=== PATIENT | female | born 1955 | race Caucasian/White ===

== ENCOUNTER 2018-12-12 05:47 | Inpatient (IN) | payer BC, MEDICARE ==
[2018-12-12] MEDS ORDERED: Lactated Ringer's 1,000 ML IV ONE ×2 (06:45→09:17)
[2018-12-12 06:50] VITALS: BMI 34.7
[2018-12-12] MEDS ORDERED: Bacitracin Ointment 30 GM TUBE ONE (07:16)
[2018-12-12] MEDS ORDERED: Absorbable Gelatin Sponge Size 12-7 ONE (07:16)
[2018-12-12] MEDS ORDERED: Thrombin Topical 5,000 Int Units Spray Kit ONE (07:16)
[2018-12-12] MEDS ORDERED: Propofol 10 mg/ml Inj (20 ML) ONE (07:24)
[2018-12-12] MEDS ORDERED: Etomidate 20 mg/10ml Inj IV ONE (07:24)
[2018-12-12] MEDS ORDERED: Succinylcholine Chloride 20 mg/ml Syr (5 ml) IV ONE (07:24)
[2018-12-12] MEDS ORDERED: Rocuronium 10 mg/ml (5 ml) ONE (07:24)
[2018-12-12] MEDS ORDERED: Lidocaine 2% MPF (5 ml) Inj ONE (07:24)
[2018-12-12] MEDS ORDERED: Tranexamic Acid 1,000 MG in Sodium Chloride 0.9% 100 ML IVPB ONE (07:26)
--- NOTE | 2018-12-12 07:26 | CP.PCM.CON ---
History of Present Illness - History of Present Illness History of Present Illness: Orthopedic consult: Dr. Zheng Patient is a 63 y/o female who presents for elective R TKA. The patient has had non-traumatic chronic knee pain for many years which has worsened over the past few months hindering her daily activities, such as walking and stair climbing. The pain has been resistant to conservative means with PT, oral meds and intra- articular injections. She had R knee arthroscopy in August 2018 with temporary pain relief and opted for joint replacement. She denies radiation of pain/numbness/tingling. She denies CP/SOB/N/V/D/fever/melena/dysuria. She denies any cardiac/thromboembolic events in the past. PMH: HTN, HLD PSH: R knee arthroscopy Aug 2018, L3-4 lumbar fusion, cholecystectomy, breast lumpectomy meds: as per med rec allergy: tramadol (hallucinations: side effect) SH: occasional ETOH, denies tobacco/drug use Review of Systems - Review of Systems All systems: reviewed and no additional remarkable complaints except Review of Systems: as per HPI Past Patient History - Past Medical History & Family History Past Medical History?: Yes Past Family History: Reviewed and not pertinent - Past Social History Smoking Status: Never Smoked - CARDIAC Hx Hypertension: Yes - MUSCULOSKELETAL/RHEUMATOLOGICAL Hx Musculoskeletal Disorders: Yes Hx Back Pain: Yes Hx Osteoarthritis: Yes Hx Unsteady Gait: No - SURGICAL HISTORY Hx Surgeries: Yes Hx Arthroscopy: Yes (R knee 2018) Hx Musculoskeletal Surgery: Yes (lumbar fusion 2016) Other/Comment: epidural inj x 2 10/2018 - ANESTHESIA Hx Anesthesia: Yes Hx Anesthesia Reactions: No Hx Malignant Hyperthermia: No Has any member of the family had a problem w/ anesthesia?: No Meds Allergies/Adverse Reactions: Allergies Allergy/AdvReac Type Severity Reaction Status Date / Time tramadol AdvReac DIZZINESS Uncoded 12/12/18 07:31 Physical Exam - Constitutional Appears: Well, No Acute Distress - Head Exam Head Exam: ATRAUMATIC, NORMOCEPHALIC - Eye Exam Eye Exam: EOMI, Normal appearance - ENT Exam ENT Exam: Mucous Membranes Moist - Respiratory Exam Respiratory Exam: NORMAL BREATHING PATTERN - Extremities Exam Additional comments: R knee: mod swelling, effusion limited ROM secondary to pain (0-90deg) sensation intact SP/DP/TN motor intact EHL/FHL/TA/G pedal pulse intact calves soft NT b/l - Neurological Exam Neurological exam: Alert, Oriented x3 - Psychiatric Exam Psychiatric exam: Normal Affect, Normal Mood - Skin Skin Exam: Normal Color, Warm Results - Vital Signs Recent Vital Signs: Last Vital Signs Temp 98 F 12/12/18 07:03 Pulse 61 12/12/18 07:03 Resp 18 12/12/18 07:03 BP 112/67 12/12/18 07:03 Pulse Ox 96 12/12/18 07:03 - Impressions Impression: R knee films reveal degenerative joint disease Assessment & Plan (1) Osteoarthritis of right knee Assessment and Plan: Dr. Zheng has planned for R TKA Risks/benefits/alternatives were explained to patient who understands and agrees to proceed with procedure NPO admit to Hospitalist D/w Dr. Zheng who agrees with above Status: Acute - Date & Time Date: 12/12/18 Time: 07:00
[2018-12-12] MEDS ORDERED: Bupivacaine HCl 0.5% PF (30 ml) Inj ONE (07:27)
--- NOTE | 2018-12-12 07:27 | CP.PCM.HP ---
<AlejandroLissette - Last Filed: 12/12/18 08:07> History of Present Illness - History of Present Illness History of Present Illness: 63 yo female with history of HTN, HLD and right knee osteoarthritis presents for elective R TKA. Patient reports chronic right knee pain of which she ambulates with a cane for stability at home. Denies chest pain, dypsnea, nausea, vomiting, fevers, chills, abdominal pain, dizziness, cough. ROS negative except for stated above in HPI. PMH: HTN, HLD, right knee osteoarthritis PSH: R knee arthroscopy Aug 2018, L3-4 lumbar fusion, cholecystectomy, breast lumpectomy Meds: as per med rec Allergy: tramadol (hallucinations: side effect) SH: social ETOH, denies tobacco/drug use. Patient cleared by her primary physician- Dr. Garces. - Lab work 12/05/18 - Chest Xray 12/05/18: No acute disease; - EK12/05/18: NSR Present on Admission - Present on Admission Any Indicators Present on Admission: No Past Patient History - Past Medical History & Family History Past Medical History?: Yes - Past Social History Smoking Status: Never Smoked - CARDIAC Hx Hypertension: Yes - MUSCULOSKELETAL/RHEUMATOLOGICAL Hx Musculoskeletal Disorders: Yes Hx Back Pain: Yes Hx Osteoarthritis: Yes Hx Unsteady Gait: No - SURGICAL HISTORY Hx Surgeries: Yes Hx Arthroscopy: Yes (R knee 2018) Hx Musculoskeletal Surgery: Yes (lumbar fusion 2016) Other/Comment: epidural inj x 2 10/2018 - ANESTHESIA Hx Anesthesia: Yes Hx Anesthesia Reactions: No Hx Malignant Hyperthermia: No Has any member of the family had a problem w/ anesthesia?: No Meds Allergies/Adverse Reactions: Allergies Allergy/AdvReac Type Severity Reaction Status Date / Time tramadol AdvReac DIZZINESS Uncoded 12/12/18 07:31 Physical Exam - Constitutional Appears: Well, Non-toxic, No Acute Distress - Eye Exam Eye Exam: Normal appearance - ENT Exam ENT Exam: Mucous Membranes Moist - Respiratory Exam Respiratory Exam: Clear to Auscultation Bilateral, NORMAL BREATHING PATTERN. absent: Accessory Muscle Use, Chest Wall Tenderness, Decreased Breath Sounds, Prolonged Expiratory Phase, Rales, Rhonchi, Wheezes, Respiratory Distress, Stridor - Cardiovascular Exam Cardiovascular Exam: REGULAR RHYTHM, +S1, +S2 - GI/Abdominal Exam GI & Abdominal Exam: Normal Bowel Sounds, Soft. absent: Distended, Firm, Rebound, Tenderness - Extremities Exam Extremities exam: Positive for: normal inspection, pedal pulses present (+2 dorsalis pedis and tibilias pulses present bilaterally. ). Negative for: calf tenderness, joint swelling, pedal edema, tenderness Additional comments: Right knee mildly larger than the left knee. Non-tender to touch, non- erythematous, no warmth. - Neurological Exam Neurological exam: Alert, Oriented x3 - Psychiatric Exam Psychiatric exam: Normal Affect, Normal Mood - Skin Skin Exam: Dry, Intact, Normal Color, Warm Results - Vital Signs Recent Vital Signs: Last Vital Signs Temp 98 F 12/12/18 07:03 Pulse 61 12/12/18 07:03 Resp 18 12/12/18 07:03 BP 112/67 12/12/18 07:03 Pulse Ox 96 12/12/18 07:03 Assessment & Plan (1) Osteoarthritis of right knee Status: Acute (2) Hypertension Status: Acute (3) Hyperlipidemia Status: Acute (4) Full code status Status: Acute (5) DVT prophylaxis Status: Acute - Assessment and Plan (Free Text) Assessment: 63 yo female with history of HTN, HLD and right knee osteoarthritis presents for elective R TKA- to be performed today. Plan: 1. Right Knee Osteoarthritis - consult Dr. Zheng - Orthopedic surgeon- recs appreciated - OT/PT - Pain management as per Ortho - NPO at this time - f/u knee xray 2. Hypertension - controlled - C/W home meds tomorrow- Losartan and Lasix 3. Hyperlipidemia - c/w home medication- Zetia 3. DVT prophylaxis - Lovenox 40 mg daily <Johnie Matamoros - Last Filed: 12/12/18 11:05> Results - Vital Signs Recent Vital Signs: Last Vital Signs Temp 98 F 12/12/18 07:03 Pulse 61 12/12/18 07:03 Resp 18 12/12/18 07:03 BP 112/67 12/12/18 07:03 Pulse Ox 96 12/12/18 07:03 - Labs Result Diagrams: 12/12/18 07:00 Labs: Laboratory Results - last 24 hr 12/12/18 12/12/18 07:00 08:30 WBC 4.3 L RBC 4.08 Hgb 12.7 Hct 38.4 MCV 94.0 MCH 31.1 H MCHC 33.1 RDW 13.7 Plt Count 188 MPV 12.2 H Neut % (Auto) 60.4 Lymph % (Auto) 26.4 [place] % (Auto) 6.7 Eos % (Auto) 5.9 H Baso % (Auto) 0.6 Neut # (Auto) 2.6 Lymph # (Auto) 1.1 [place] # (Auto) 0.3 Eos # (Auto) 0.3 Baso # (Auto) 0.0 Fluid Type Synovial fluid Attending/Attestation - Attestation I have personally seen and examined this patient.: Yes I have fully participated in the care of the patient.: Yes I have reviewed all pertinent clinical information: Yes Notes (Text): 12/12/18 10:52 I saw, examined and discussed this patient with Dr Wick. I agree with the assessment and plan outlined above. This is a 63 years old female with a Chronic non traumatic pain to the right knee becoming, worse to where she has to use a walker to ambulate. She is admitted for an elective total right knee replacement with orthopedic management. The patient was cleared by Dr Garces. Continue Home medication post surgery. DVT Prophylaxis to start on Post operation day #1. Johnie Matamoros MD
[2018-12-12 08:39] LABS: BASO % 0.6 % (0.0-2.0); EOS # 0.3 K/uL (0.0-0.7); EOS % 5.9 % (0.0-4.0); HEMOGLOBIN 12.7 g/dL (12.0-16.0); LYMPH # 1.1 K/uL (1.0-4.3); LYMPH % 26.4 % (20.0-40.0); MEAN CORPUSCULAR HEMOGLOBIN 31.1 pg (27.0-31.0); MEAN CORPUSCULAR HGB CONC 33.1 g/dL (33.0-37.0); MEAN PLATELET VOLUME 12.2 fl (7.2-11.7); MONO # 0.3 K/uL (0.0-0.8); MONO % 6.7 % (0.0-10.0); NEUT # 2.6 K/uL (1.8-7.0); NEUT % 60.4 % (50.0-75.0); NRBC % 0.1 % (0.0-0.0); RBC 4.08 Mil/uL (3.80-5.20); RED CELL DISTRIBUTION WIDTH 13.7 % (11.5-14.5); WHITE BLOOD COUNT 4.3 K/uL (4.8-10.8)
[2018-12-12] MEDS ORDERED: Enoxaparin 40 mg Syringe SC SCH (09:00)
[2018-12-12 09:57] LABS: FLUID TYPE SYNOVIAL FLUID
[2018-12-12] MEDS ORDERED: Neostigmine 1:1000 (1 mg/ml) Inj ONE (10:35)
[2018-12-12 11:07] LABS: SF GROSS APPEARANCE CLEAR (CLEAR)
[2018-12-12 11:08] LABS: SYNOVIAL FLUID COMMENT YELLOW/MUCOID
[2018-12-12] MEDS ORDERED: HYDROmorphone 0.5 mg/0.5 ml ISec IVP PRN (11:33)
--- NOTE | 2018-12-12 11:37 | PCM.ANESB3 ---
Femoral Nerve Block - Femoral Nerve Block Date of Procedure: 12/12/18 Anesthesiologist: Ashley Pre-Procedure Diagnosis: Right knee severe OA Post-Procedure Diagnosis: Same Procedure Performed: Femoral Nerve Block Right - Procedure Femoral Nerve Block: The procedure was explained to the patient that it is for the post-operative pain management. Consent was obtained after a thorough discussion with the patient regarding the benefits and possible complications of local anesthetic block of the femoral nerve at the inguinal crease area. The patient was brought to the operating room and standard monitors were applied. Time-out was held with the circulating nurse to confirm the correct surgery and the appropriate block. Under general anesthesia, patient was placed in supine position with fully extended lower extremities and the ____right____ groin exposed. The femoral artery was then carefully palpated. The ultrasound transducer was then applied to this area in the transverse plane and the femoral nerve was visualized lateral to the femoral artery and underneath the fascia iliaca. After thorough identification, the inguinal crease area was prepped with Chloraprep. At this point, a #22 gauge Stimuplex 2-inch needle was inserted immediately lateral to the femoral artery pulse at the inguinal crease and advanced perpendicularly. The needle was inserted to the ultrasound transducer in-plane towards the femoral nerve in a aecgphy-[id number] direction. Needle advancement was performed carefully under direct ultrasound visualization. Nerve stimulator was used and twitch of the quadriceps muscle was obtained at current of _0.4____MA. After negative aspiration, __2___cc of _0.5____% __bupivacaine with 1:200,000 epinephrine was injected and this was followed with __18____ cc of ____0.5___ % ___bupivacaine with 1:200,000 epinephrine . Under ultrasound guidance the local anesthetics were observed spreading below fascia iliaca and around the femoral nerve. The needle was removed intact. The patient tolerated the femoral nerve block well with stable vital signs and was prepared for subsequent surgery.
--- NOTE | 2018-12-12 11:39 | PCM.ANESB2 ---
Popliteal Nerve Block - Popliteal Nerve Block Date of Procedure: 12/12/18 Anesthesiologist: Ashley Pre-Procedure Diagnosis: Right knee severe OA Post-Procedure Diagnosis: Same Procedure Performed: Popliteal Nerve Block Right - Procedure Popliteal Nerve Block: This procedure was explained to the patient that it is for post-operative pain management. Consent was obtained after a thorough discussion with the patient regarding the benefits and possible complications of local anesthetic block of the sciatic nerve at the popliteal level. The patient was brought to the operating room and standard monitors are applied. Time-out was held with the circulating nurse to confirm the correct surgery and the appropriate block. Under general anesthesia, patient's operative leg was gently raised and supported and the groove in between the biceps femoris and vastus lateralis muscles was carefully palpated. The skin approximately 8cm above the popliteal crease was then marked. The ultrasound transducer was then applied to the posterior thigh approximately 8cm above the popliteal crease in the transverse plane and the sciatic nerve before its division was visualized lateral to the popliteal artery and in between the bicep femoris and semimembranosus/semitendinosus muscles. After identification, the lateral portion of the thigh was prepped with Chloraprep. At this point, a # 21 gauge Stimuplex insulated 4 inch needle was inserted into pre-marked area and advanced in a perpendicular direction. The needle was inserted above the ultrasound transducer in-plane towards the sciatic nerve in a wetulhy-rg-beastp direction. Needle advancement was performed carefully under direct ultrasound visualization. Nerve stimulator was used and dorsiflexion of the _right____ foot was elicited at a current of _0.4____ MA. After repeated negative aspiration, _2____cc of __0.5___ % ____bupivacaine with 1:200,000 epinephrine was injected and this was flowed with ___2___ cc of __0.5____% __bupivacaine with 1:200,000 epinephrine . Under ultrasound guidance the local anesthetics were observed surrounding sciatic nerve . The needle was removed intact. The patient tolerated the popliteal nerve block well with stable vital signs and was subsequently prepared for the surgery.
[2018-12-12] MEDS ORDERED: Lactated Ringer's 1,000 ML IV SCH (11:45)
--- NOTE | 2018-12-12 11:50 | PCM.SURG1 ---
Surgeon's Initial Post Op Note - Surgeon's Notes Surgeon: Norm Vehicle Body Builder: ADOLPH Brock/ 2nd lamont Dewey PA-C Type of Anesthesia: General Endo, Block Regional Anesthesia Administered By: DR Oni Valdes Pre-Operative Diagnosis: Tricomparmtnetal O/A R knee Operative Findings: svere triocomparmtnetal O/A R knee. anterior and posterior synvoitis. posterior capsular contracture. lateral; patella contracture Post-Operative Diagnosis: as above Operation Performed: R TKR. anteiroa nd posterior ry0yosdveyxy. posterior capsular release. lateral patella release. computer navighation Specimen/Specimens Removed: synvium/cratilage/bone Estimated Blood Loss: EBL {In ML}: 35 Blood Products Given: N/A Drains Used: No Drains Post-Op Condition: Fair Date of Surgery/Procedure: 12/12/18 Time of Surgery/Procedure: 08:55 (time in room 0800/naetsheisa induction time 0800)
[2018-12-12 13:11] LABS: SYNOVIAL FLUID MONO/MACROPHAGE 26 % (0-0)
--- NOTE | 2018-12-12 15:38 | RAD ---
Date of service: 12/12/2018 PROCEDURE: Right Knee Radiographs. HISTORY: s/p R TKA COMPARISON: None. TECHNIQUE: 2 views obtained. FINDINGS: BONES: Status post right total knee replacement. No acute osseous fracture. Prosthesis in grossly acceptable alignment. JOINTS: As above JOINT EFFUSION: None. OTHER FINDINGS: Postoperative changes in ventral soft tissues. IMPRESSION: Status post right total knee replacement.
--- NOTE | 2018-12-12 15:41 | RAD ---
Date of service: 12/12/2018 PROCEDURE: Right Knee Radiographs. HISTORY: right total knee COMPARISON: None. TECHNIQUE: Three views obtained. FINDINGS: BONES: No acute fracture. No lytic or blastic osseous lesion. JOINTS: Marked narrowing of the lateral joint compartment with associated subchondral sclerosis. The medial and patellofemoral compartments are grossly preserved. There are no articular erosions. JOINT EFFUSION: None. OTHER FINDINGS: None. IMPRESSION: Lateral osteoarthritis.
[2018-12-12] MEDS: ceFAZolin 1 GM in Sodium Chloride 0.9% 100 ML IVPB SCH (17:51)
--- NOTE | 2018-12-12 18:50 | CP.PCM.PCO ---
Addendum Addendum: 12/12/18 18:38 Patient seen and examined at bedside, status post R TKR POD 1 Feeling well in general, mild ROWELL, nurse gave Tylenol No knee pain at this time, tolerating PO, voiding w/o difficulty, denies sob, CP or abd pain. VSS, afebrile, O2 sat noted 92% Lungs: cta b/l, good air entry CVS: RRR, + s1 s2 R Knee immobilizer in place intact, dressing noted clean and dry. Able to move toes, sensation preserved. Continue O2 via N at 2 lpm Encouraged IS Pain management Labs in am Monitor vitals Rest of plan as per Ortho team. YBecegelaa PGY 2
[2018-12-12] MEDS: Docusate-Senna 50 mg-8.6 mg Tab PO SCH (21:01)
--- NOTE | 2018-12-12 23:36 | OP ---
PROCEDURE DATE: 12/12/2018 PREOPERATIVE DIAGNOSIS: Tricompartmental osteoarthritis of the right knee. POSTOPERATIVE DIAGNOSES: 1. Tricompartmental osteoarthritis of the right knee with valgus deformity. 2. Anterior and posterior synovitis. 3. Posterior capsular contracture. 4. Lateral patellar retinacular contracture. OPERATIVE FINDINGS: 1. Severe tricompartmental osteoarthritis, right knee most pronounced in the lateral compartment and with valgus deformity. 2. Anterior and posterior synovitis. 3. Posterior capsular contracture. 4. Lateral patellar retinacular contracture. OPERATIVE PROCEDURES: 1. Right total knee replacement arthroplasty. 2. Right anterior and posterior synovectomy. 3. Posterior capsular release on the right knee. 4. Lateral patellar retinacular release on the right knee. 5. Computer navigation of the right knee. SURGEON: Abhinav Zheng MD SUPERVISOR POLE YARD: Keiry Gputa, certified registered nursing first line production supervisor. SECOND GOVERNMENT OPERATIONS CONSULTANT: Jose Manuel Johnson PA-C ANESTHESIA: General endotracheal anesthesia with regional block. ANESTHESIOLOGIST: Oni Ramirez MD SPECIMENS REMOVED: Synovium, cartilage, bone. BLOOD LOSS: 35 mL. BLOOD PRODUCTS: No blood products given. DRAINS: No drains. POSTOPERATIVE CONDITION: Stable. TIME OF SURGERY: Time in the room 8 o'clock, incision time 8:55. 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 The patient presents with marked discomfort, pain and restricted range of motion. The patient was refractory to conservative approach consisting of intraarticular injection, activity modification, weight loss and arthroscopy. The patient can no longer withstand the discomfort, response after all conservative modalities. Pros, cons, risks and benefits of knee replacement arthroplasty were discussed at length with the patient. The possibility of mechanical failure, infection, thromboembolic disease, possibility of secondary or tertiary surgery was discussed. The patient can no longer withstand the discomfort and wished the surgery to be accomplished. OPERATIVE PROCEDURE: After having obtained informed consent, after having identified side, site and procedure and a critical pause/time-out, after satisfactory induction of the anesthetic, the patient was identified as Nori Bravo in the supine position with all bony prominences well padded. The right lower extremity was prepped and free draped in the usual fashion for lower extremity surgery. The tourniquet had been applied, but was not yet inflated. After exsanguinating the limb using a 6-inch Esmarch bandage, the tourniquet which had been applied was inflated to 350 mmHg. A 6-inch straight midline approach was made to the knee. The skin incision was carried down through the skin and subcutaneous tissue. Medial arthrotomy was accomplished, the patella was everted, the knee was flexed. Dissection was carried around to the direct head of the semimembranosus tendon. A portion of the patellar ligament was elevated to the iliotibial band insertion in the Gerdy's tubercle. This having been accomplished, anterior and posterior cruciate ligaments were excised, medial and lateral meniscectomies were accomplished. The tibia was dislocated anteriorly and the initial osteotomy of the arthroplasty was accomplished on the tibial side. Computer navigation commenced. The tibial strut for the OrthAlign device was affixed to the anterior aspect of the tibia, the belt was applied, stylus was inserted to the posterior aspect of the anterior cruciate ligament insertion. The offset was approximately 5.5 and it was set at 5.5. The accelerometer was applied as was the sensor. At this point in time, having set the offset as defined above, the lateral malleolus was registered, the medial malleolus was registered. The varus-valgus was set to 0 degrees varus-valgus and 3.5 degrees posterior slope. This having been accomplished, the initial osteotomy was accomplished on the tibial side. The cutting guide was set with the stylus 10 mm below the more prominent side. The tibial osteotomy was accomplished, and with the soft tissue releases, approximately a 12 mm polyethylene was anticipated. This having been accomplished, attention was turned to the femur, the navigation pin was placed above the intercondylar notch and again computer navigation commenced. The distal femoral cutting guide was applied with the accelerometer and the sensor. The offset was again measured. It was registered on the device. Computer navigation commenced with the varus-valgus cut set at 0 degrees on the mechanical axis and 0.5 degrees of posterior slope. This having been accomplished, the distal cut was accomplished, AP sizing was for #6 distal femoral cutting block. This was applied across the epicondylar axis. Anterior osteotomy was accomplished. The posterior condyles were osteotomized and the notch was identified. Anterior and posterior osteotomy chamfer cuts having been accomplished, the #6 trial was applied. The box was cut, and at this point in time, the trial having been made intact, the tibia was dislocated anteriorly. The proximal tibia was prepared with guidance to rotation being the lateral aspect of the tibial condyle, the mid malleolar axis and the middle third of the tibial tuberosity. The proximal tibia was reamed and punched, and this having been accomplished, the trialling was with a #12 polyethylene, the knee was reduced and found to be stable and balanced at all planes. Attention was turned to the patella, the patella girth was 29 mm. A freehand patellar osteotomy was accomplished to 32 mm, 32 mm patella was reamed. A lateral patellar retinacular release was accomplished in a pie-crusting fashion as described by . The lateral patellar retinacular release was controlled, hemostasis was controlled, and the trialling was found to be excellent, flexion/extension balance was excellent, range of motion was 128 degrees to full extension. There was no evidence of instability. There was no evidence of anterior-posterior tibiofemoral instability and the patella was well balanced. At this point in time, the posterior capsule having been released earlier, the lateral patellar retinaculum having been released, it should be noted that prior to trialling and actually prior to the distal femoral cut, an extensive anterior synovectomy had been accomplished. After the distal cut was accomplished, the posterior capsule was elevated and a posterior capsular release was accomplished. This having been accomplished, trialling having been accomplished, the femur, tibia and patella were prepared with Waterpik, and this having been accomplished, the #6 cemented femoral component was applied, the appropriate size tibial tray, 12 mm polyethylene, 32 mm patella button. Hemostasis was controlled. After curing the cement and the cement, the position was found to be excellent. The tourniquet was deflated. Hemostasis was controlled meticulously. The patient had had tranexamic acid applied prior to incision. This having been accomplished, hemostasis was controlled after again testing flexion/extension balance and lateral patellar balance, closures in layers with #2 FiberWire, #1 Vicryl, 0 Vicryl, 2-0 Vicryl and ant for skin. No Hemovac drain was required. Brijesh Sampson compression dressing and knee immobilizer were applied. Keiry Gupta and Jose Manuel Johnson were necessary to the assistantship at every point of the procedure and to achieve the operative goal. Postoperative x-ray reveals excellent position of the construct. Abhinav Zheng MD
[2018-12-13] MEDS: ceFAZolin 1 GM in Sodium Chloride 0.9% 100 ML IVPB SCH (00:45)
[2018-12-13 06:17] LABS: HEMOGLOBIN 12.2 g/dL (12.0-16.0); MEAN CELL VOLUME 94.8 fl (81.0-99.0); MEAN CORPUSCULAR HEMOGLOBIN 31.1 pg (27.0-31.0); MEAN CORPUSCULAR HGB CONC 32.8 g/dL (33.0-37.0); RBC 3.9 Mil/uL (3.80-5.20); RED CELL DISTRIBUTION WIDTH 13.1 % (11.5-14.5); WHITE BLOOD COUNT 9.9 K/uL (4.8-10.8)
[2018-12-13 07:11] LABS: BLOOD UREA NITROGEN 14 mg/dl (7-17); CALCIUM 9.9 mg/dL (8.4-10.2); GFR NON-AFRICAN AMERICAN > 60
[2018-12-13] MEDS ORDERED: Potassium Chloride 20 mEq ER Tab PO ONE (07:24)
--- NOTE | 2018-12-13 07:31 | CP.PCM.PN ---
<Lissette Allen - Last Filed: 12/13/18 08:27> Subjective - Date & Time of Evaluation Date of Evaluation: 12/13/18 Time of Evaluation: 08:00 - Subjective Subjective: Patient seen and examined at bedside. Patient reports mild right knee pain but is excited to participate in PT today. Denies angina, dypsnea, cough, nausea, v omiting, abdominal pain, dizziness. Reports she has appetite. Has not yet had a bowel movement but states she has passed some gas. She reports she is using her incentive spirometer every hour. Objective - Vital Signs/Intake and Output Vital Signs (last 24 hours): Temp Pulse Resp BP Pulse Ox 97.6 F 73 18 107/66 94 L 12/13/18 05:00 12/13/18 05:00 12/13/18 05:00 12/13/18 05:00 12/13/18 05:00 - Medications Medications: Current Medications Acetaminophen (Tylenol 325mg Tab) 975 mg PO Q8 [facility] Stop: 12/14/18 17:01 Last Admin: 12/13/18 00:45 Dose: 975 mg Ezetimibe (Zetia) 10 mg PO DAILY [facility] Enoxaparin Sodium (Lovenox) 40 mg SC DAILY [facility]; Protocol Ferrous Sulfate (Feosol) 325 mg PO BID [facility] Last Admin: 12/12/18 17:19 Dose: 325 mg Folic Acid (Folic Acid) 1 mg PO DAILY [facility] Furosemide (Lasix) 40 mg PO DAILY [facility] HCTZ/Losartan Potassium (Hyzaar 12.5 Mg-50 Mg) 2 tab PO DAILY [facility] Hydromorphone HCl (Dilaudid) 0.5 mg IVP Q4 PRN PRN Reason: Pain, severe (8-10) Hydromorphone HCl (Dilaudid) 2 mg PO Q4 PRN PRN Reason: Pain, moderate (4-7) Last Admin: 12/12/18 22:52 Dose: 2 mg Potassium Chloride (K-Dur 20 Meq Er Tab) 20 meq PO ONCE ONE Stop: 12/13/18 07:25 Senna/Docusate Sodium (Senokot S 50 Mg-8.6 Mg) 2 tab PO [facility] Last Admin: 12/12/18 21:01 Dose: 2 tab - Labs Labs: 12/13/18 04:15 12/13/18 04:15 - Constitutional Appears: Non-toxic, No Acute Distress - ENT Exam ENT Exam: Mucous Membranes Moist - Respiratory Exam Respiratory Exam: Clear to Ausculation Bilateral, NORMAL BREATHING PATTERN. absent: Accessory Muscle Use, Chest Wall Tenderness, Decreased Breath Sounds, Prolonged Expiratory Phase, Rales, Rhonchi, Wheezes, Respiratory Distress, Stridor - Cardiovascular Exam Cardiovascular Exam: REGULAR RHYTHM, +S1, +S2 - GI/Abdominal Exam GI & Abdominal Exam: Soft, Normal Bowel Sounds. absent: Distended, Firm, Guarding, Rigid, Tenderness, Mass, Rebound - Extremities Exam Extremities Exam: Normal Capillary Refill. absent: Calf Tenderness, Joint Swelling, Pedal Edema, Tenderness Additional comments: Right knee with cast in place. Good sensation bilaterally and pt able to wiggle toes bilaterally. +2 dorsalis pedis and tibialis pulses. - Neurological Exam Neurological Exam: Alert, Awake, Oriented x3 - Psychiatric Exam Psychiatric exam: Normal Affect, Normal Mood - Skin Skin Exam: Dry, Intact, Normal Color, Warm Assessment and Plan (1) Osteoarthritis of right knee Status: Acute (2) Hypertension Status: Acute (3) Hyperlipidemia Status: Acute (4) Full code status Status: Acute (5) DVT prophylaxis Status: Acute - Assessment and Plan (Free Text) Assessment: 63 yo female with history of HTN, HLD and right knee osteoarthritis admitted for elective R TKA- POD #1 Plan: 1. Right Knee Osteoarthritis, POD #1 - S/P R TKA - consult Dr. Zheng - Orthopedic surgeon- recs appreciated - OT/PT - Pain management as per Ortho - regular diet 2. Hypertension - controlled - C/W home meds tomorrow- Losartan and Lasix 3. Hyperlipidemia - c/w home medication- Zetia 4. Hypokalemia - 3.4 - replace with PO KCL 20mEQ - F/U AM labs 5. DVT prophylaxis - Lovenox 40 mg daily <Ana Snyder - Last Filed: 12/13/18 22:17> Objective - Vital Signs/Intake and Output Vital Signs (last 24 hours): Temp Pulse Resp BP Pulse Ox 97.6 F 62 20 105/58 L 97 12/13/18 17:00 12/13/18 17:00 12/13/18 17:00 12/13/18 17:00 12/13/18 17:00 - Medications Medications: Current Medications Acetaminophen (Tylenol 325mg Tab) 975 mg PO Q8 [facility] Stop: 12/14/18 17:01 Last Admin: 12/13/18 16:48 Dose: 975 mg Ezetimibe (Zetia) 10 mg PO DAILY [facility] Last Admin: 12/13/18 08:35 Dose: 10 mg Enoxaparin Sodium (Lovenox) 40 mg SC DAILY [facility]; Protocol Last Admin: 12/13/18 10:21 Dose: 40 mg Ferrous Sulfate (Feosol) 325 mg PO BID [facility] Last Admin: 12/13/18 16:48 Dose: 325 mg Folic Acid (Folic Acid) 1 mg PO DAILY [facility] Last Admin: 12/13/18 08:33 Dose: 1 mg Furosemide (Lasix) 40 mg PO DAILY [facility] Last Admin: 12/13/18 08:35 Dose: 40 mg HCTZ/Losartan Potassium (Hyzaar 12.5 Mg-50 Mg) 2 tab PO DAILY [facility] Last Admin: 12/13/18 08:34 Dose: 2 tab Hydromorphone HCl (Dilaudid) 2 mg PO Q4 PRN PRN Reason: Pain, moderate (4-7) Last Admin: 12/13/18 18:58 Dose: 2 mg Hydromorphone HCl (Dilaudid) 0.5 mg IVP Q3 PRN PRN Reason: Pain, severe (8-10) Senna/Docusate Sodium (Senokot S 50 Mg-8.6 Mg) 2 tab PO HS [facility] Last Admin: 12/13/18 21:24 Dose: 2 tab - Labs Labs: 12/13/18 04:15 12/13/18 04:15 Attending/Attestation - Attestation I have personally seen and examined this patient.: Yes I have fully participated in the care of the patient.: Yes I have reviewed all pertinent clinical information, including history, physical exam and plan: Yes Notes (Text): agree with findings and plan as above
[2018-12-13] MEDS: HCTZ/Losartan 12.5/50 Tab PO SCH (08:34)
[2018-12-13] MEDS: HYDROmorphone 0.5 mg/0.5 ml ISec IVP PRN ×2 (08:36→21:09)
--- NOTE | 2018-12-13 09:02 | CP.PCM.PN ---
Subjective - Date & Time of Evaluation Date of Evaluation: 12/13/18 Time of Evaluation: 09:00 - Subjective Subjective: Patient states pain in knee is controlled. Headache overnight has resolved. Denies CP/SOB/dizziness/tingling/numbness. Objective - Vital Signs/Intake and Output Vital Signs (last 24 hours): Temp Pulse Resp BP Pulse Ox 97.9 F 58 L 20 108/57 L 95 12/13/18 08:58 12/13/18 08:58 12/13/18 08:58 12/13/18 08:58 12/13/18 08:58 - Medications Medications: Current Medications Acetaminophen (Tylenol 325mg Tab) 975 mg PO Q8 [facility] Stop: 12/14/18 17:01 Last Admin: 12/13/18 08:43 Dose: 975 mg Ezetimibe (Zetia) 10 mg PO DAILY [facility] Last Admin: 12/13/18 08:35 Dose: 10 mg Enoxaparin Sodium (Lovenox) 40 mg SC DAILY [facility]; Protocol Ferrous Sulfate (Feosol) 325 mg PO BID [facility] Last Admin: 12/13/18 08:33 Dose: 325 mg Folic Acid (Folic Acid) 1 mg PO DAILY [facility] Last Admin: 12/13/18 08:33 Dose: 1 mg Furosemide (Lasix) 40 mg PO DAILY [facility] Last Admin: 12/13/18 08:35 Dose: 40 mg HCTZ/Losartan Potassium (Hyzaar 12.5 Mg-50 Mg) 2 tab PO DAILY [facility] Last Admin: 12/13/18 08:34 Dose: 2 tab Hydromorphone HCl (Dilaudid) 0.5 mg IVP Q4 PRN PRN Reason: Pain, severe (8-10) Last Admin: 12/13/18 08:36 Dose: 0.5 mg Hydromorphone HCl (Dilaudid) 2 mg PO Q4 PRN PRN Reason: Pain, moderate (4-7) Last Admin: 12/12/18 22:52 Dose: 2 mg Senna/Docusate Sodium (Senokot S 50 Mg-8.6 Mg) 2 tab PO HS [facility] Last Admin: 12/12/18 21:01 Dose: 2 tab - Labs Labs: 12/13/18 04:15 12/13/18 04:15 - Extremities Exam Additional comments: RLE: +ROM ankle/toes, sensation intact +DP/PT Pulses calves soft NT neg homans dressing intact Assessment and Plan (1) Osteoarthritis of right knee Assessment & Plan: POD#1 s/p right TKR PT/OT VTE Proph d/c planning labs in am d/w Dr. Zheng, agrees with above Status: Acute
[2018-12-13] MEDS: Enoxaparin 40 mg Syringe SC SCH (10:21)
--- NOTE | 2018-12-13 10:29 | CP.PCM.CON ---
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 SHE HAD A RIGHT KNEE ARTHROSCOPY IN AUGUST 2018 BUT THE PATIENT STILL COULDN'T WALK WELL WITHOUT PAIN. SHE ALSO HAS A HISTORY OF HYPERTENSION AND HYPERLIPIDEMIA WELL A SPINAL FUSION. I WAS ASKED TO SEE HER BY DR HEARD. SHE DENIES CHEST PAIN OR SOB. Past Patient History - Past Medical History & Family History Past Medical History?: Yes - Past Social History Smoking Status: Never Smoked - CARDIAC Hx Hypertension: Yes - MUSCULOSKELETAL/RHEUMATOLOGICAL Hx Musculoskeletal Disorders: Yes Hx Back Pain: Yes Hx Osteoarthritis: Yes Hx Unsteady Gait: No - SURGICAL HISTORY Hx Surgeries: Yes Hx Arthroscopy: Yes (R knee 2018) Hx Musculoskeletal Surgery: Yes (lumbar fusion 2016) Other/Comment: epidural inj x 2 10/2018 - ANESTHESIA Hx Anesthesia: Yes Hx Anesthesia Reactions: No Hx Malignant Hyperthermia: No Has any member of the family had a problem w/ anesthesia?: No Meds Allergies/Adverse Reactions: Allergies Allergy/AdvReac Type Severity Reaction Status Date / Time tramadol AdvReac DIZZINESS Uncoded 12/12/18 07:31 - Medications Medications: Current Medications Acetaminophen (Tylenol 325mg Tab) 975 mg PO Q8 [facility] Stop: 12/14/18 17:01 Last Admin: 12/13/18 08:43 Dose: 975 mg Ezetimibe (Zetia) 10 mg PO DAILY [facility] Last Admin: 12/13/18 08:35 Dose: 10 mg Enoxaparin Sodium (Lovenox) 40 mg SC DAILY [facility]; Protocol Last Admin: 12/13/18 10:21 Dose: 40 mg Ferrous Sulfate (Feosol) 325 mg PO BID [facility] Last Admin: 12/13/18 08:33 Dose: 325 mg Folic Acid (Folic Acid) 1 mg PO DAILY [facility] Last Admin: 12/13/18 08:33 Dose: 1 mg Furosemide (Lasix) 40 mg PO DAILY [facility] Last Admin: 12/13/18 08:35 Dose: 40 mg HCTZ/Losartan Potassium (Hyzaar 12.5 Mg-50 Mg) 2 tab PO DAILY [facility] Last Admin: 12/13/18 08:34 Dose: 2 tab Hydromorphone HCl (Dilaudid) 0.5 mg IVP Q4 PRN PRN Reason: Pain, severe (8-10) Last Admin: 12/13/18 08:36 Dose: 0.5 mg Hydromorphone HCl (Dilaudid) 2 mg PO Q4 PRN PRN Reason: Pain, moderate (4-7) Last Admin: 12/12/18 22:52 Dose: 2 mg Senna/Docusate Sodium (Senokot S 50 Mg-8.6 Mg) 2 tab PO HS [facility] Last Admin: 12/12/18 21:01 Dose: 2 tab Physical Exam - Respiratory Exam Respiratory Exam: Clear to Auscultation Bilateral - Cardiovascular Exam Cardiovascular Exam: REGULAR RHYTHM, +S1, +S2 - Extremities Exam Additional comments: RLE WITH SURGICAL DRESSINGS LLE WITHOUT EDEMA - Additional Findings Additional findings: EKG NSR Results - Vital Signs Recent Vital Signs: Last Vital Signs Temp 97.9 F 12/13/18 08:58 Pulse 58 L 12/13/18 08:58 Resp 20 12/13/18 08:58 BP 108/57 L 12/13/18 08:58 Pulse Ox 95 12/13/18 08:58 - Labs Result Diagrams: 12/13/18 04:15 12/13/18 04:15 Labs: Laboratory Results - last 24 hr 12/12/18 12/13/18 12/13/18 08:30 04:15 04:15 WBC 9.9 D RBC 3.90 Hgb 12.2 Hct 37.0 MCV 94.8 MCH 31.1 H MCHC 32.8 L RDW 13.1 Plt Count 160 Sodium 139 Potassium 3.4 L Chloride 105 Carbon Dioxide 26 Anion Gap 11 BUN 14 Creatinine 0.7 Est GFR ( Amer) > 60 Est GFR (Non-Af Amer) > 60 Random Glucose 108 H Calcium 9.9 Synovial WBC 149.0 Synovial RBC 584.0 H Synovial Neutrophils 6.0 H Synovial Lymphocytes 68.0 H Synov Monos/Macrophage 26 H Synovial Fluid Comment Yellow/mucoid Assessment & Plan - Assessment and Plan (Free Text) Assessment: RIGHT TKR FOR OA HYPERTENSION HYPERLIPIDEMIA Plan: CONTINUE HYZAAR, ZETIA AND LOVENOX FOR DAREN
[2018-12-13] MEDS: Docusate-Senna 50 mg-8.6 mg Tab PO SCH (21:24)
[2018-12-14 07:19] LABS: ALB/GLOB RATIO 1.2 (1.0-2.1); ALBUMIN 3.6 g/dL (3.5-5.0); BILIRUBIN,DIRECT 0.2 mg/ml (0.0-0.4)
[2018-12-14] MEDS: HYDROmorphone 0.5 mg/0.5 ml ISec IVP PRN ×2 (09:24→16:19)
[2018-12-14] MEDS: HCTZ/Losartan 12.5/50 Tab PO SCH (09:31)
[2018-12-14] MEDS: Enoxaparin 40 mg Syringe SC SCH (09:31)
--- NOTE | 2018-12-14 09:43 | CP.PCM.PN ---
Subjective - Date & Time of Evaluation Date of Evaluation: 12/14/18 Time of Evaluation: 09:15 - Subjective Subjective: S- pt with MINIMAL post op discomfort Objective - Vital Signs/Intake and Output Vital Signs (last 24 hours): Temp Pulse Resp BP Pulse Ox 98.4 F 71 18 105/63 93 L 12/14/18 01:00 12/14/18 01:00 12/14/18 01:00 12/14/18 09:31 12/14/18 01:00 - Medications Medications: Current Medications Acetaminophen (Tylenol 325mg Tab) 975 mg PO Q8 [facility] Stop: 12/14/18 17:01 Last Admin: 12/14/18 09:32 Dose: 975 mg Ezetimibe (Zetia) 10 mg PO DAILY [facility] Last Admin: 12/14/18 09:33 Dose: 10 mg Enoxaparin Sodium (Lovenox) 40 mg SC DAILY [facility]; Protocol Last Admin: 12/14/18 09:31 Dose: 40 mg Ferrous Sulfate (Feosol) 325 mg PO BID [facility] Last Admin: 12/14/18 09:30 Dose: 325 mg Folic Acid (Folic Acid) 1 mg PO DAILY [facility] Last Admin: 12/14/18 09:30 Dose: 1 mg Furosemide (Lasix) 40 mg PO DAILY [facility] Last Admin: 12/14/18 09:31 Dose: 40 mg HCTZ/Losartan Potassium (Hyzaar 12.5 Mg-50 Mg) 2 tab PO DAILY [facility] Last Admin: 12/14/18 09:31 Dose: 2 tab Hydromorphone HCl (Dilaudid) 2 mg PO Q4 PRN PRN Reason: Pain, moderate (4-7) Last Admin: 12/13/18 18:58 Dose: 2 mg Hydromorphone HCl (Dilaudid) 0.5 mg IVP Q3 PRN PRN Reason: Pain, severe (8-10) Last Admin: 12/14/18 09:24 Dose: 0.5 mg Senna/Docusate Sodium (Senokot S 50 Mg-8.6 Mg) 2 tab PO HS [facility] Last Admin: 12/13/18 21:24 Dose: 2 tab - Labs Labs: 12/13/18 04:15 12/13/18 04:15 - Additional Findings Additional findings: Systemic exam- wnl <usculoskeletal stance/gait- defrred ROM R knee imroved no calf tenderness/mo Tino,ams Assessment and Plan - Assessment and Plan (Free Text) Assessment: A- orhtopedically stable s/p TKR P- weigth bearing to tolerance orthopedically stable for d/c
[2018-12-14] MEDS: Docusate-Senna 50 mg-8.6 mg Tab PO SCH (22:34)
[2018-12-15] MEDS: Docusate-Senna 50 mg-8.6 mg Tab PO SCH ×2 (02:19→21:26)
[2018-12-15] MEDS: Enoxaparin 40 mg Syringe SC SCH (08:05)
[2018-12-15] MEDS: HCTZ/Losartan 12.5/50 Tab PO SCH (08:05)
--- NOTE | 2018-12-15 11:58 | CP.PCM.PN ---
Subjective - Date & Time of Evaluation Date of Evaluation: 12/15/18 Time of Evaluation: 10:50 - Subjective Subjective: NO CHEST PAIN OR SOB STILL WITH PAIN IN RIGHT KNEE Objective - Vital Signs/Intake and Output Vital Signs (last 24 hours): Temp Pulse Resp BP Pulse Ox 98.6 F 75 20 121/70 97 12/15/18 08:07 12/15/18 08:07 12/15/18 08:07 12/15/18 08:07 12/15/18 08:07 Intake and Output: 12/15/18 12/15/18 06:59 18:59 Intake Total 240 Balance 240 - Medications Medications: Current Medications Docusate Sodium (Colace) 100 mg PO BID [facility] Last Admin: 12/15/18 08:04 Dose: 100 mg Ezetimibe (Zetia) 10 mg PO DAILY [facility] Last Admin: 12/15/18 09:45 Dose: 10 mg Enoxaparin Sodium (Lovenox) 40 mg SC DAILY [facility]; Protocol Last Admin: 12/15/18 08:05 Dose: 40 mg Ferrous Sulfate (Feosol) 325 mg PO BID [facility] Last Admin: 12/15/18 08:04 Dose: 325 mg Folic Acid (Folic Acid) 1 mg PO DAILY [facility] Last Admin: 12/15/18 08:05 Dose: 1 mg Furosemide (Lasix) 40 mg PO DAILY [facility] Last Admin: 12/15/18 08:06 Dose: 40 mg HCTZ/Losartan Potassium (Hyzaar 12.5 Mg-50 Mg) 2 tab PO DAILY [facility] Last Admin: 12/15/18 08:05 Dose: 2 tab Hydromorphone HCl (Dilaudid) 0.5 mg IVP Q3 PRN PRN Reason: Pain, severe (8-10) Last Admin: 12/15/18 07:50 Dose: 0.5 mg Senna/Docusate Sodium (Senokot S 50 Mg-8.6 Mg) 2 tab PO HS [facility] Last Admin: 12/15/18 02:19 Dose: 2 tab - Labs Labs: 12/13/18 04:15 12/13/18 04:15 - Respiratory Exam Respiratory Exam: Clear to Ausculation Bilateral - Cardiovascular Exam Cardiovascular Exam: REGULAR RHYTHM, +S1, +S2 Assessment and Plan - Assessment and Plan (Free Text) Assessment: S/P RKA FOR SEVERE OA HYPERTENSION HYPERLIPIDEMIA Plan: CONTINUE HYZAAR, FUROSEMIDE, ZETIA AND LOVENOX
--- NOTE | 2018-12-16 07:58 | CP.PCM.PN ---
Subjective - Date & Time of Evaluation Date of Evaluation: 12/16/18 Time of Evaluation: 07:30 - Subjective Subjective: Patient seen and examined at bedside. Pain well controlled. No acute events over the weekend. Denies any CP/SOB/fever/dizziness. Objective - Vital Signs/Intake and Output Vital Signs (last 24 hours): Temp Pulse Resp BP Pulse Ox 98.4 F 76 19 111/64 95 12/16/18 00:05 12/16/18 00:05 12/16/18 00:05 12/16/18 00:05 12/16/18 00:05 Intake and Output: 12/16/18 12/16/18 06:59 18:59 Intake Total 480 Balance 480 - Medications Medications: Current Medications Docusate Sodium (Colace) 100 mg PO BID [facility] Last Admin: 12/15/18 17:02 Dose: Not Given Ezetimibe (Zetia) 10 mg PO DAILY [facility] Last Admin: 12/15/18 09:45 Dose: 10 mg Enoxaparin Sodium (Lovenox) 40 mg SC DAILY [facility]; Protocol Last Admin: 12/15/18 08:05 Dose: 40 mg Ferrous Sulfate (Feosol) 325 mg PO BID [facility] Last Admin: 12/15/18 17:02 Dose: Not Given Folic Acid (Folic Acid) 1 mg PO DAILY [facility] Last Admin: 12/15/18 08:05 Dose: 1 mg Furosemide (Lasix) 40 mg PO DAILY [facility] Last Admin: 12/15/18 08:06 Dose: 40 mg HCTZ/Losartan Potassium (Hyzaar 12.5 Mg-50 Mg) 2 tab PO DAILY [facility] Last Admin: 12/15/18 08:05 Dose: 2 tab Hydromorphone HCl (Dilaudid) 0.5 mg IVP Q3 PRN PRN Reason: Pain, severe (8-10) Last Admin: 12/15/18 15:43 Dose: 0.5 mg Hydromorphone HCl (Dilaudid) 2 mg PO Q4 PRN PRN Reason: Pain, moderate (4-7) Last Admin: 12/15/18 21:23 Dose: 2 mg Senna/Docusate Sodium (Senokot S 50 Mg-8.6 Mg) 2 tab PO HS [facility] Last Admin: 12/15/18 21:26 Dose: Not Given - Labs Labs: 12/13/18 04:15 04/26/19 04:15 - Extremities Exam Additional comments: R knee: Dressings CDI incision CDI with ant sensation intact SP/DP/TN motor intact EHL/FHL/TA/G pedal pulse intact calves soft NT Assessment and Plan (1) Osteoarthritis of right knee Assessment & Plan: POD #4 s/p R TKA -Dressings changed -CPM/knee imm as per order -PT/OT -orthopedically stable for d/c to home -d/w Dr. Zheng who agrees with above Status: Acute
[2018-12-16] MEDS: HCTZ/Losartan 12.5/50 Tab PO SCH (08:01)
[2018-12-16] MEDS: Enoxaparin 40 mg Syringe SC SCH (08:02)
--- NOTE | 2018-12-16 08:09 | CP.PCM.PN ---
Subjective - Date & Time of Evaluation Date of Evaluation: 12/13/18 Time of Evaluation: 10:30 - Subjective Subjective: Patient remains stable Has no chest pain or SOB afebrile., Tolerating well. Has minimal pain on the post op area. Complains of constipation. Objective - Vital Signs/Intake and Output Vital Signs (last 24 hours): Temp Pulse Resp BP Pulse Ox 98.4 F 76 19 111/64 95 12/16/18 00:05 12/16/18 00:05 12/16/18 00:05 12/16/18 00:05 12/16/18 00:05 Intake and Output: 12/16/18 12/16/18 06:59 18:59 Intake Total 480 Balance 480 - Medications Medications: Current Medications Docusate Sodium (Colace) 100 mg PO BID [facility] Last Admin: 12/16/18 08:00 Dose: Not Given Ezetimibe (Zetia) 10 mg PO DAILY [facility] Last Admin: 12/16/18 08:02 Dose: 10 mg Enoxaparin Sodium (Lovenox) 40 mg SC DAILY [facility]; Protocol Last Admin: 12/16/18 08:02 Dose: 40 mg Ferrous Sulfate (Feosol) 325 mg PO BID [facility] Last Admin: 12/16/18 08:01 Dose: Not Given Folic Acid (Folic Acid) 1 mg PO DAILY [facility] Last Admin: 12/16/18 08:01 Dose: 1 mg Furosemide (Lasix) 40 mg PO DAILY [facility] Last Admin: 12/16/18 08:01 Dose: Not Given HCTZ/Losartan Potassium (Hyzaar 12.5 Mg-50 Mg) 2 tab PO DAILY [facility] Last Admin: 12/16/18 08:01 Dose: Not Given Hydromorphone HCl (Dilaudid) 0.5 mg IVP Q3 PRN PRN Reason: Pain, severe (8-10) Last Admin: 12/15/18 15:43 Dose: 0.5 mg Hydromorphone HCl (Dilaudid) 2 mg PO Q4 PRN PRN Reason: Pain, moderate (4-7) Last Admin: 12/16/18 08:00 Dose: 2 mg Senna/Docusate Sodium (Senokot S 50 Mg-8.6 Mg) 2 tab PO HS [facility] Last Admin: 12/15/18 21:26 Dose: Not Given - Labs Labs: 12/13/18 04:15 12/13/18 04:15 - Head Exam Head Exam: NORMAL INSPECTION - Eye Exam Eye Exam: Normal appearance - ENT Exam ENT Exam: Mucous Membranes Moist - Respiratory Exam Respiratory Exam: Clear to Ausculation Bilateral - Cardiovascular Exam Cardiovascular Exam: REGULAR RHYTHM - GI/Abdominal Exam GI & Abdominal Exam: Normal Bowel Sounds - Neurological Exam Neurological Exam: Awake, Oriented x3 Assessment and Plan (1) Osteoarthritis of right knee Status: Acute (2) Hyperlipidemia Status: Acute (3) Hypertension Status: Acute - Assessment and Plan (Free Text) Plan: Cont meds Cont tx Cont PT pain meds.
--- NOTE | 2018-12-16 08:11 | CP.PCM.PN ---
Subjective - Date & Time of Evaluation Date of Evaluation: 12/14/18 Time of Evaluation: 11:00 - Subjective Subjective: Patient remains stable Has no chest pain or SOB Still with some pain on the right post op area. Tolerated minimal ambulation and phys therapy. Lai sno fever. Has better bm with stool softener. Has no calf pain. Objective - Vital Signs/Intake and Output Vital Signs (last 24 hours): Temp Pulse Resp BP Pulse Ox 98.4 F 76 19 111/64 95 12/16/18 00:05 12/16/18 00:05 12/16/18 00:05 12/16/18 00:05 12/16/18 00:05 Intake and Output: 12/16/18 12/16/18 06:59 18:59 Intake Total 480 Balance 480 - Medications Medications: Current Medications Docusate Sodium (Colace) 100 mg PO BID [facility] Last Admin: 12/16/18 08:00 Dose: Not Given Ezetimibe (Zetia) 10 mg PO DAILY [facility] Last Admin: 12/16/18 08:02 Dose: 10 mg Enoxaparin Sodium (Lovenox) 40 mg SC DAILY [facility]; Protocol Last Admin: 12/16/18 08:02 Dose: 40 mg Ferrous Sulfate (Feosol) 325 mg PO BID [facility] Last Admin: 12/16/18 08:01 Dose: Not Given Folic Acid (Folic Acid) 1 mg PO DAILY [facility] Last Admin: 12/16/18 08:01 Dose: 1 mg Furosemide (Lasix) 40 mg PO DAILY [facility] Last Admin: 12/16/18 08:01 Dose: Not Given HCTZ/Losartan Potassium (Hyzaar 12.5 Mg-50 Mg) 2 tab PO DAILY [facility] Last Admin: 12/16/18 08:01 Dose: Not Given Hydromorphone HCl (Dilaudid) 0.5 mg IVP Q3 PRN PRN Reason: Pain, severe (8-10) Last Admin: 12/15/18 15:43 Dose: 0.5 mg Hydromorphone HCl (Dilaudid) 2 mg PO Q4 PRN PRN Reason: Pain, moderate (4-7) Last Admin: 12/16/18 08:00 Dose: 2 mg Senna/Docusate Sodium (Senokot S 50 Mg-8.6 Mg) 2 tab PO [facility] Last Admin: 12/15/18 21:26 Dose: Not Given - Labs Labs: 12/13/18 04:15 12/13/18 04:15 - Head Exam Head Exam: NORMAL INSPECTION - Eye Exam Eye Exam: Normal appearance - Respiratory Exam Respiratory Exam: Clear to Ausculation Bilateral - Cardiovascular Exam Cardiovascular Exam: REGULAR RHYTHM - GI/Abdominal Exam GI & Abdominal Exam: Normal Bowel Sounds Assessment and Plan (1) Osteoarthritis of right knee Status: Acute (2) Hyperlipidemia Status: Acute (3) Hypertension Status: Acute - Assessment and Plan (Free Text) Plan: Con tmeds Cont tx Cont PT Dc plans on sunday if not approved for subacute
--- NOTE | 2018-12-16 08:12 | CP.PCM.PN ---
Subjective - Date & Time of Evaluation Date of Evaluation: 12/15/18 Time of Evaluation: 11:00 - Subjective Subjective: Patient is doing a lot better Has no chest pain or SOB afebrile. Objective - Vital Signs/Intake and Output Vital Signs (last 24 hours): Temp Pulse Resp BP Pulse Ox 98.4 F 76 19 111/64 95 12/16/18 00:05 12/16/18 00:05 12/16/18 00:05 12/16/18 00:05 12/16/18 00:05 Intake and Output: 12/16/18 12/16/18 06:59 18:59 Intake Total 480 Balance 480 - Medications Medications: Current Medications Docusate Sodium (Colace) 100 mg PO BID [facility] Last Admin: 12/16/18 08:00 Dose: Not Given Ezetimibe (Zetia) 10 mg PO DAILY [facility] Last Admin: 12/16/18 08:02 Dose: 10 mg Enoxaparin Sodium (Lovenox) 40 mg SC DAILY [facility]; Protocol Last Admin: 12/16/18 08:02 Dose: 40 mg Ferrous Sulfate (Feosol) 325 mg PO BID [facility] Last Admin: 12/16/18 08:01 Dose: Not Given Folic Acid (Folic Acid) 1 mg PO DAILY [facility] Last Admin: 12/16/18 08:01 Dose: 1 mg Furosemide (Lasix) 40 mg PO DAILY [facility] Last Admin: 12/16/18 08:01 Dose: Not Given HCTZ/Losartan Potassium (Hyzaar 12.5 Mg-50 Mg) 2 tab PO DAILY [facility] Last Admin: 12/16/18 08:01 Dose: Not Given Hydromorphone HCl (Dilaudid) 0.5 mg IVP Q3 PRN PRN Reason: Pain, severe (8-10) Last Admin: 12/15/18 15:43 Dose: 0.5 mg Hydromorphone HCl (Dilaudid) 2 mg PO Q4 PRN PRN Reason: Pain, moderate (4-7) Last Admin: 12/16/18 08:00 Dose: 2 mg Senna/Docusate Sodium (Senokot S 50 Mg-8.6 Mg) 2 tab PO HS [facility] Last Admin: 12/15/18 21:26 Dose: Not Given - Labs Labs: 12/13/18 04:15 12/13/18 04:15 - Head Exam Head Exam: NORMAL INSPECTION - Eye Exam Eye Exam: Normal appearance - ENT Exam ENT Exam: Mucous Membranes Moist - Respiratory Exam Respiratory Exam: Clear to Ausculation Bilateral - Cardiovascular Exam Cardiovascular Exam: REGULAR RHYTHM - GI/Abdominal Exam GI & Abdominal Exam: Soft Assessment and Plan (1) Osteoarthritis of right knee Status: Acute (2) Hyperlipidemia Status: Acute (3) Hypertension Status: Acute - Assessment and Plan (Free Text) Plan: Con tmeds COn ttx Cont PT pain meds.
--- NOTE | 2018-12-16 09:19 | CP.PCM.PN ---
Subjective - Date & Time of Evaluation Date of Evaluation: 12/16/18 Time of Evaluation: 08:30 - Subjective Subjective: COMPLAINS OF PAIN IN THE RIGHT KNEE NO CHEST PAIN OR SOB Objective - Vital Signs/Intake and Output Vital Signs (last 24 hours): Temp Pulse Resp BP Pulse Ox 98.1 F 86 18 116/73 94 L 12/16/18 08:37 12/16/18 08:37 12/16/18 08:37 12/16/18 08:37 12/16/18 08:37 Intake and Output: 12/16/18 12/16/18 06:59 18:59 Intake Total 480 Balance 480 - Medications Medications: Current Medications Docusate Sodium (Colace) 100 mg PO BID [facility] Last Admin: 12/16/18 08:00 Dose: Not Given Ezetimibe (Zetia) 10 mg PO DAILY [facility] Last Admin: 12/16/18 08:02 Dose: 10 mg Enoxaparin Sodium (Lovenox) 40 mg SC DAILY [facility]; Protocol Last Admin: 12/16/18 08:02 Dose: 40 mg Ferrous Sulfate (Feosol) 325 mg PO BID [facility] Last Admin: 12/16/18 08:01 Dose: Not Given Folic Acid (Folic Acid) 1 mg PO DAILY [facility] Last Admin: 12/16/18 08:01 Dose: 1 mg Furosemide (Lasix) 40 mg PO DAILY [facility] Last Admin: 12/16/18 08:01 Dose: Not Given HCTZ/Losartan Potassium (Hyzaar 12.5 Mg-50 Mg) 2 tab PO DAILY [facility] Last Admin: 12/16/18 08:01 Dose: Not Given Hydromorphone HCl (Dilaudid) 0.5 mg IVP Q3 PRN PRN Reason: Pain, severe (8-10) Last Admin: 12/15/18 15:43 Dose: 0.5 mg Hydromorphone HCl (Dilaudid) 2 mg PO Q4 PRN PRN Reason: Pain, moderate (4-7) Last Admin: 12/16/18 08:00 Dose: 2 mg Senna/Docusate Sodium (Senokot S 50 Mg-8.6 Mg) 2 tab PO HS [facility] Last Admin: 12/15/18 21:26 Dose: Not Given - Labs Labs: 12/13/18 04:15 12/13/18 04:15 - Respiratory Exam Respiratory Exam: Clear to Ausculation Bilateral - Cardiovascular Exam Cardiovascular Exam: REGULAR RHYTHM, +S1, +S2 - Extremities Exam Additional comments: RLE WITH SURGICAL DRESSINGS Assessment and Plan - Assessment and Plan (Free Text) Assessment: S/P RIGHT TKR FOR OA HYPERTENSION HYPERLIPIDEMIA Plan: CONTINUE HYZAAR, ZETIA AND LOVENOX
[2018-12-16 09:51] LABS: MEAN CELL VOLUME 94.8 fl (81.0-99.0); MEAN CORPUSCULAR HEMOGLOBIN 31.1 pg (27.0-31.0); MEAN CORPUSCULAR HGB CONC 32.8 g/dL (33.0-37.0); RBC 3.88 Mil/uL (3.80-5.20); RED CELL DISTRIBUTION WIDTH 13.6 % (11.5-14.5); WHITE BLOOD COUNT 9.4 K/uL (4.8-10.8)
[2018-12-16 09:57] LABS: BLOOD UREA NITROGEN 11 mg/dl (7-17); CALCIUM 9.4 mg/dL (8.4-10.2); GFR NON-AFRICAN AMERICAN > 60
[2018-12-16] MEDS ORDERED: HYDROmorphone 0.5 mg/0.5 ml ISec IM PRN (15:23)
[2018-12-16 16:17] VITALS: BP 98/64; PULSE 71; RESP 20; TEMP 98.2; O2SAT 97
--- NOTE | 2018-12-16 19:07 | CP.PCM.DIS ---
Provider - Provider Date of Admission: 12/12/18 07:30 Attending physician: Rob Garces MD Consults: 12/12/18 10:44 Orthopedic Consult Routine Comment: Consulting Provider: Abhinav Zheng III Consulting Physician: Abhinav Zheng III Reason for Consult: Nontraumatic chronic knee pain 12/12/18 11:32 Cardiology Consult Routine Comment: Consulting Provider: Vinh Sykes Consulting Physician: Vinh Sykes Reason for Consult: postop cardiac mgmt Case Management Referral Routine Comment: Physician Instructions: Reason For Exam: Reason for Referral: Discharge Planning Time Spent in preparation of Discharge (in minutes): 30 Diagnosis - Discharge Diagnosis (1) Osteoarthritis of right knee Status: Acute Hospital Course - Lab Results Lab Results: Micro Results 12/12/18 08:30 Body Fluid - Knee-Right Gram Stain - Final 12/12/18 08:30 Body Fluid - Knee-Right Anaerobic Culture - Final NO ANAEROBES ISOLATED. 12/12/18 08:30 Body Fluid - Knee-Right Body Fluid Culture - Final No growth. 12/12/18 15:00 Knee - Right Gram Stain - Final 12/12/18 15:00 Knee - Right Wound Culture - Final No growth. 12/12/18 15:00 Knee - Right Gram Stain - Final 12/12/18 15:00 Knee - Right Wound Culture - Final No growth. 12/12/18 15:00 Knee - Right Gram Stain - Final 12/12/18 15:00 Knee - Right Wound Culture - Final No growth. 12/12/18 15:00 Knee - Right Gram Stain - Final 12/12/18 15:00 Knee - Right Wound Culture - Final No growth. 12/12/18 15:00 Knee - Right Gram Stain - Final 12/12/18 15:00 Knee - Right Wound Culture - Final No growth. 12/12/18 15:00 Knee - Right Gram Stain - Final 12/12/18 15:00 Knee - Right Wound Culture - Final No growth. 12/12/18 15:00 Knee - Right Gram Stain - Final 12/12/18 15:00 Knee - Right Anaerobic Culture - Final NO ANAEROBES ISOLATED. 12/12/18 15:00 Knee - Right Wound Culture - Final No growth. 12/12/18 15:00 Knee - Right Gram Stain - Final 12/12/18 15:00 Knee - Right Wound Culture - Final No growth. 12/12/18 08:30 Other: Please Indicate Mycobacterial Culture - Preliminary Most Recent Lab Values WBC 9.4 K/uL (4.8-10.8) 12/16/18 09:00 RBC 3.88 Mil/uL (3.80-5.20) 12/16/18 09:00 Hgb 12.0 g/dL (12.0-16.0) 12/16/18 09:00 Hct 36.8 % (34.0-47.0) 12/16/18 09:00 MCV 94.8 fl (81.0-99.0) 12/16/18 09:00 MCH 31.1 pg (27.0-31.0) H 12/16/18 09:00 MCHC 32.8 g/dL (33.0-37.0) L 12/16/18 09:00 RDW 13.6 % (11.5-14.5) 12/16/18 09:00 Plt Count 191 K/uL (130-400) 12/16/18 09:00 MPV 12.2 fl (7.2-11.7) H 12/12/18 07:00 Neut % (Auto) 60.4 % (50.0-75.0) 12/12/18 07:00 Lymph % (Auto) 26.4 % (20.0-40.0) 12/12/18 07:00 [place] % (Auto) 6.7 % (0.0-10.0) 12/12/18 07:00 Eos % (Auto) 5.9 % (0.0-4.0) H 12/12/18 07:00 Baso % (Auto) 0.6 % (0.0-2.0) 12/12/18 07:00 Neut # (Auto) 2.6 K/uL (1.8-7.0) 12/12/18 07:00 Lymph # (Auto) 1.1 K/uL (1.0-4.3) 12/12/18 07:00 [place] # (Auto) 0.3 K/uL (0.0-0.8) 12/12/18 07:00 Eos # (Auto) 0.3 K/uL (0.0-0.7) 12/12/18 07:00 Baso # (Auto) 0.0 K/uL (0.0-0.2) 12/12/18 07:00 Sodium 137 mmol/l (132-148) 12/16/18 09:00 Potassium 3.7 MMOL/L (3.6-5.0) 12/16/18 09:00 Chloride 100 mmol/L (98-107) 12/16/18 09:00 Carbon Dioxide 24 mmol/L (22-30) 12/16/18 09:00 Anion Gap 17 (10-20) 12/16/18 09:00 BUN 11 mg/dl (7-17) 12/16/18 09:00 Creatinine 0.6 mg/dl (0.7-1.2) L 12/16/18 09:00 Est GFR ( Amer) > 60 12/16/18 09:00 Est GFR (Non-Af Amer) > 60 12/16/18 09:00 Random Glucose 175 mg/dL (65-105) H 12/16/18 09:00 Calcium 9.4 mg/dL (8.4-10.2) 12/16/18 09:00 Total Bilirubin 0.5 mg/dl (0.2-1.3) 12/14/18 05:05 Direct Bilirubin 0.2 mg/ml (0.0-0.4) 12/14/18 05:05 AST 37 U/L (14-36) H 12/14/18 05:05 ALT 44 U/L (9-52) 12/14/18 05:05 Alkaline Phosphatase 46 U/L (38-126) 12/14/18 05:05 Total Protein 6.5 G/DL (6.3-8.2) 12/14/18 05:05 Albumin 3.6 g/dL (3.5-5.0) 12/14/18 05:05 Globulin 2.9 gm/dL (2.2-3.9) 12/14/18 05:05 Albumin/Globulin Ratio 1.2 (1.0-2.1) 12/14/18 05:05 25-OH Vitamin D Total 46.1 NG/ML (30.0-100.0) 12/14/18 05:05 Fluid Type Synovial fluid 12/12/18 08:30 Synovial WBC 149.0 /mm3 (0.0-150.0) 12/12/18 08:30 Synovial RBC 584.0 /mm3 (0.0-0.0) H 12/12/18 08:30 Synovial Neutrophils 6.0 % (0-0) H 12/12/18 08:30 Synovial Lymphocytes 68.0 % (0-0) H 12/12/18 08:30 Synov Monos/Macrophage 26 % (0-0) H 12/12/18 08:30 Synovial Fluid Comment Yellow/mucoid 12/12/18 08:30 - Hospital Course Hospital Course: 63 yo female with history of HTN, HLD and right knee osteoarthritis admitted for Right total knee replacement. Completed by Dr. Zheng. Patient progressed postoperatively well and was cleared by orthopedic for discharge home with PT services and pain medications. Discharge Exam - Head Exam Head Exam: NORMAL INSPECTION - Eye Exam Eye Exam: Normal appearance - Respiratory Exam Respiratory Exam: NORMAL BREATHING PATTERN - Cardiovascular Exam Cardiovascular Exam: +S1, +S2 - Neurological Exam Neurological exam: Alert, Oriented x3 - Psychiatric Exam Psychiatric exam: Normal Affect, Normal Mood - Skin Skin Exam: Normal Color, Warm Discharge Plan - Discharge Medications Prescriptions: HYDROmorphone [Dilaudid 2 mg Tab] 2 mg PO Q4 PRN #30 tab PRN Reason: Pain, Severe (8-10) - Follow Up Plan Condition: STABLE Disposition: HOME/ ROUTINE Instructions: Total Knee Replacement (DC), Weight-Bearing Restrictions Additional Instructions: full weight bearing right leg Referrals: Abhinav Zheng III, MD [Staff Provider] - Rob Garces MD [Family Provider] -
== END 2018-12-16 18:30 | disposition home or self-care (01) | DRG 470 ==
LOC: H.OPSURG 05:47 → H.ERHOLD 07:30 → H.MEDSURG1 15:33
PROVIDERS: ADMIT Family Medicine; ATTEND Family Medicine
PROC: 8E0YXBZ Computer Assisted Procedure of Lower Extremity (ICD-10-PCS; 2018-12-12)
PROC: 3E0T3BZ Introduction of Anesthetic Agent into Peripheral Nerves and Plexi, Percutaneous Approach (ICD-10-PCS; 2018-12-12)
PROC: 3E0T3BZ Introduction of Anesthetic Agent into Peripheral Nerves and Plexi, Percutaneous Approach (ICD-10-PCS; 2018-12-12)
PROC: 0SRC0J9 Replacement of Right Knee Joint with Synthetic Substitute, Cemented, Open Approach (ICD-10-PCS; principal; 2018-12-12 07:45)
PROC: 0SBC0ZZ Excision of Right Knee Joint, Open Approach (ICD-10-PCS; 2018-12-12 07:45)
PROC: 0SNC0ZZ Release Right Knee Joint, Open Approach (ICD-10-PCS; 2018-12-12 07:45)
DX: M17.11 Unilateral primary osteoarthritis, right knee (principal); I10 Essential (primary) hypertension; E78.5 Hyperlipidemia, unspecified; M65.9 Synovitis and tenosynovitis, unspecified; M24.561 Contracture, right knee; E87.6 Hypokalemia; K59.00 Constipation, unspecified; M21.061 Valgus deformity, not elsewhere classified, right knee